=== PATIENT | male | born 2000 | race Hispanic/Latino ===

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

== ENCOUNTER 2018-02-14 09:28 | Emergency (ER) | payer BC, SELFPAY ==
[2018-02-14 10:07] LABS: Clarity Clear (Clear)
[2018-02-14 10:08] LABS: Specific Gravity, Urine 1.025 (1.002-1.036)
[2018-02-14 10:09] LABS: Bilirubin Negative (Negative); Blood, Urine Negative (Negative); Glucose, Urine (Dipstick) Negative (Negative); Leukocyte Negative (Negative); Nitrite Negative (Negative); Protein, Urine (Dipstick) Negative (Neg-Trace)
[2018-02-14 10:19] LABS: #Basophils 0.1 thou/uL (0.0-0.2); #Eosinphils 0.1 thou/uL (0.0-0.7); #Lymphocytes 2.8 thou/uL (1.20-3.40); #Monocytes 0.6 thou/uL (0.11-0.59); #Neutrophils 4.7 thou/uL (1.40-6.50); %Eosinophils 1.3 % (0.0-10.0); %Lymphocytes 33.8 % (28.0-48.0); %Monocytes 6.8 % (0.0-4.0); %Neutrophils 57.1 % (31.0-61.0); Hemoglobin 14.6 g/dL (14.0-18.0); Mean Corpuscular HGB CONC 33.6 g/dL (32.0-36.0); Mean Corpuscular Hemoglobin 29.3 pg (25.0-35.0); Mean Corpuscular Volume 87.2 fL (78.0-98.0); Mean Platelet Volume 9.6 fL (7.4-10.4); Platelet Count 275 thou/uL (130-400); RBC Distribution Width 11.5 % (11.5-14.5); White Blood Cell (WBC) Count 8.2 thou/uL (4.8-10.8)
[2018-02-14 10:36] LABS: ALT (SGPT) 30 U/L (8-55); AST (SGOT) 20 U/L (10-45); Alkaline Phosphatase 115 U/L (Less than 750); Anion Gap 13 mmol/L (10-20); BUN (Urea Nitrogen) 14 mg/dL (8.4-21.0); Bilirubin, Total 0.6 mg/dL (0.2-1.2); Calc. Creatinine Clearance 0 mL/min (70-130); Calcium 9.2 mg/dL (7.8-10.44); Carbon Dioxide 24 mmol/L (22-29); Chloride 108 mmol/L (98-107); Estimated GFR-MDRD Greater than 90; Globulin 3.1 g/dL (2.4-3.5); Glucose 102 mg/dL (70-105); Lipase 63 U/L (8-78); Potassium 3.6 mmol/L (3.5-5.1); Protein, Total 7.1 g/dL (6.0-8.3); Sodium 141 mmol/L (136-145)
--- NOTE | 2018-02-14 13:26 | CT ---
CT ABDOMEN AND PELVIS WITH COTNRAST: DATE: 02/14/2018. FINDINGS: Spiral CT of the abdomen and pelvis was performed for evaluation of right lower quadrant pain with na usea and vomiting. Axial slices were acquired, then coronal and sagittal reconstructions were done. The lung bases are clear. The liver, spleen, pancreas, gallbladder, adrenal glands, kidneys, and abd ominal aorta all appeared normal. The bowel shows no distention, inflammatory change around it, or other abnormality. The appendix was identified and appears normal. There is a very mild increase in fecal material in the colon which m ay or may not be significant. Some of the mesenteric nodes were a little larger than usual and a lit tle more numerous, though not dramatically. The possibility of mild mesenteric adenitis is at least considered. No free air or free fluid was present. No pelvic masses, fluid collections, or inflammatory changes were appreciated. The bony structures s howed no acute findings. There does appear to be some generalized bulging of th eL3 or L4 disk. No bony anomalies are seen. IMPRESSION: 1. No evidence for appendicitis. 2. Possible mild mesenteric adenopathy. Possible minimal constipation. Reading of exam delayed by a V-RAD delay. Results called to Dr. Vazquez by me at 1225 on 02/14/2018. CODE CR POS: HOME
== END 2018-02-14 12:37 | disposition home or self-care (01) ==
LOC: BURERS 09:28
DX: R19.7 Diarrhea, unspecified (principal); R10.31 Right lower quadrant pain
CPT/HCPCS: 74177; 80053; 81003; 83690; 85025